=== PATIENT | female | born 1980 | race Asian ===

== ENCOUNTER 2022-10-28 17:45 | Emergency (ER) | payer BC, OTHER ==
[~2022-10-28] VITALS: Ht 160 cm; Wt 66.2 kg
[~2022-10-28 17:45] MED LIST: PREN1TAB49
--- NOTE | 2022-10-28 17:59 | NUR ---
ER Dr. Stewart at bedside examining patient.
--- NOTE | 2022-10-28 17:59 | NUR ---
PT PLACED IN HALLWAY BED 2 BY RN.
[2022-10-28 18:00] VITALS: BP_SYST 158
[2022-10-28 18:52] LABS: BASOPHILS % (AUTO) 0.4 % (0.0-2.0); EOSINOPHILS # (AUTO) 0.1 K/uL (0.0-0.4); EOSINOPHILS % (AUTO) 1.4 % (0.0-4.0); HEMATOCRIT 29.7 % (36-48); HEMOGLOBIN 9.2 g/dL (12.0-16.0); LYMPHOCYTES # (AUTO) 1.8 K/uL (1.0-5.5); LYMPHOCYTES % (AUTO) 27.3 % (20.5-51.5); MEAN CORPUSCULAR HEMOGLOBIN 22 pg (27-31); MEAN CORPUSCULAR HGB CONC 31 % (32-36); MEAN CORPUSCULAR VOLUME 72 fL (79.0-98.0); MONOCYTES # (AUTO) 0.4 K/uL (0.0-1.0); NEUTROPHILS # (AUTO) 4.2 K/uL (1.8-7.7); NEUTROPHILS % (AUTO) 64.9 % (40.0-70.0); PLATELET COUNT (AUTO) 413 K/uL (130-430); RED BLOOD CELL COUNT(AUTO) 4.16 MIL/uL (4.2-6.2); RED CELL DISTRIBUTION WIDTH 17.1 % (9.0-15.0); WHITE BLOOD COUNT (AUTO) 6.5 K/uL (4.8-10.8)
[2022-10-28 18:55] LABS: ALBUMIN 3.3 g/dL (3.4-4.8); CALCIUM 8.1 mg/dL (8.4-11.0); CREATININE 0.73 mg/dL (0.55-1.30); TOTAL BILIRUBIN 0.2 mg/dL (0.0-1.0)
[2022-10-28] MEDS ORDERED: KETOROLAC TROMETHAMINE 60 MG/2 ML VIAL IM ONE (19:00)
--- NOTE | 2022-10-28 19:17 | NUR ---
Pt bib self from home. ambulated to hallway bed 2. Pt is A&Ox4, able to make needs known. Pt c/o upper epigastric pain x3 days. Pt rates pain 10/10 and describes pain as sharp and stabbing. Pt has a hx of GERD. Pt denies N/V/D. Pt denies SOB and chest pain. Safety measures in place.
[2022-10-28] MEDS ORDERED: MAG HYDROX/AL HYDROX/SIMETH 30 ML, DICYCLOMINE HCL 20 MG, LIDOCAINE VISCOUS 2% 15ML (PO... PO ONE ×3 (19:30)
--- NOTE | 2022-10-28 19:31 | NUR ---
Pt stable lying in gurney, no s/s of discomfort noted. Endorsed pt and care to [facility].
[2022-10-28 19:35] LABS: BILIRUBIN,URINE NEGATIVE (NEGATIVE); CLARITY/URINE CLEAR (CLEAR); COLOR,URINE YELLOW (YELLOW); GLUCOSE,URINE NEGATIVE (NEGATIVE); KETONES,URINE NEGATIVE (NEGATIVE); NITRITE, URINE NEGATIVE (NEGATIVE); PROTEIN URINE NEGATIVE (NEGATIVE)
--- NOTE | 2022-10-28 19:39 | NUR ---
Assumed pt care. Pt AAOx4, continues to c/o abdominal discomfort 12/23. Pt medicated with GI Cocktail.
[2022-10-28 19:42] LABS: BLOOD, URINE TRACE (NEGATIVE); LEUKOCYTE ESTERASE ,URINE TRACE (NEGATIVE)
[2022-10-28 19:43] LABS: BACTERIA,URINE FEW /HPF (None Seen); MUCUS,URINE None Seen /LPF (None Seen); RBC,URINE NONE SEEN /HPF (0-3)
[2022-10-28] MEDS ORDERED: ONDA-8 TL (20:16)
[2022-10-28] MEDS ORDERED: HYDR-3917 PO (20:16)
[2022-10-28] MEDS ORDERED: IBUP-1969 PO (20:16)
[2022-10-28 20:58] VITALS: BP_SYST 110
[2022-10-28] MEDS ORDERED: ONDANSETRON 4 MG ODT TAB PO ONE (21:00)
--- NOTE | 2022-10-28 21:00 | NUR ---
Patient given written and verbal discharge instructions and verbalizes understanding. ER MD discussed with patient the results and treatment provided. Patient in stable condition. ID arm band removed. Rx of Letha, Zofran, and Motrin given. Patient educated on pain management and to follow up with PMD. Pain Scale 2/10. Opportunity for questions provided and answered. Medication side effect fact sheet provided.
== END 2022-10-28 20:58 | disposition home or self-care (01) ==
LOC: SED 17:45
DX: K80.50 Calculus of bile duct without cholangitis or cholecystitis without obstruction (principal); R10.13 Epigastric pain; Z88.2 Allergy status to sulfonamides; Z79.899 Other long term (current) drug therapy
CPT/HCPCS: 99285; 76705; 80053; 81000; 82150; 84703; 83690; 85025; 36415; 81025; 96372; 83605; Q0162; J2001; J1885